=== PATIENT | female | born 1990 | race Caucasian/White ===

== ENCOUNTER 2020-08-04 15:04 | Emergency (ER) | payer OTHER, SELFPAY ==
[2020-08-04 15:30] VITALS: BP 130/73; PULSE 75; RESP 75; TEMP 36.4; O2SAT 98
--- NOTE | 2020-08-04 15:43 | ED.FEMALEGU ---
HPI - Female Genitourinary General Source: patient Mode of arrival: ambulatory Limitations: no limitations History of Present Illness HPI Narrative: Patient comes in with complaints of rectal pain when trying to have a bowel movement or when trying to urinate. Pain is sharp, moderately severe, and ongoing for the past few days. She says it is severe enough she felt she must come in for some sort of relief. She previously has had difficulty with hemorrhoids. Nothing has helped decrease the pain at home, and she has tried multiple creams. A sitz bath helped some. MD elicited complaint: dysuria and other (rectal pain ) Pertinent past history: other (hemorroid pain) Onset (ago): day(s) Location of symptoms: other (rectum) Severity: severe Quality of pain: sharp Consistency: constant Vaginal discharge: none Vaginal bleeding: none Urinary symptoms: Dysuria (difficulty with voiding as urination aggravates hemorroid) Exacerbating factors: urination, movement and other (bowel movement) Relieving factors: other (sitz bath) Patient : Yes (heart tones noted by RN within normal range) Related Data Home Medications Medication Instructions Recorded Confirmed docusate sodium [Colace] 50 mg PO DAILY 08/04/20 08/04/20 lansoprazole [Prevacid] 30 mg PO DAILY 08/04/20 08/04/20 prenat.vits,kianna,nar-vzdt-otzil 1 tablet PO DAILY 08/04/20 08/04/20 [ Vitamin] Allergies Allergy/AdvReac Type Severity Reaction Status Date / Time erythromycin base Allergy Unknown Verified 08/04/20 15:36 Review of Systems Constitutional: Constitutional: Reports no additional constitutional complaints Eyes: Eyes: Reports no additional eye complaints ENT: Reports system reviewed and no additional complaints, except as documented Cardiovascular: Cardiovascular: Reports no additional cardiovascular complaints Respiratory: Respiratory: Reports no additional respiratory complaints Gastrointestinal: Gastrointestinal: Reports no additional gastrointestinal complaints Genitourinary: Genitourinary: Reports no additional female genitourinary complaints Musculoskeletal: Musculoskeletal: Reports no additional musculoskeletal complaints Integumentary/Breasts: Skin/Breast: Reports system reviewed and no additional complaints, except as docu Neurologic: Reports system reviewed and no additional complaints, except as documented Psychiatric: Psychiatric: Reports no additional psychiatric complaints Endocrine: Endocrine: Reports no additional endocrine complaints Hematologic/Lymphatic: Hematologic/Lymphatic: Reports no additional hematologic/lymphatic complaints Allergic/Immunologic: Allergic/Immunologic: Reports no additional allergic/immunologic complaints [facility] Past Medical History Medical History External hemorrhoids Surgical History Surgical History History of appendectomy History of cholecystectomy Family History Family History Mother No problems noted. Mother No significant family history Social History Social History (Updated 08/04/20 @ 21:17 by Willian Murray MD) Smoking packs per day: 0.4 Smoking cigarettes per day: 8.0 Smoking status: Current every day smoker Tobacco type: cigarettes Additional smoking assessment comments: less than 1/2 PPD Alcohol intake: never Substance use: never Exam Const: General: alert Orientation/consciousness: patient oriented x3 Other: Appears uncomfortable and quite upset HENMT: Head: normal to inspection Ears: external ears normal and TM's normal bilaterally General nose exam: Normal external nose present Mouth: Yes Normal oral and palatal mucosa present Throat: posterior oropharynx normal Eyes: Conjunctivae: conjunctivae normal Neck: Neck: normal visual inspection and no lymphadenopathy Chest: Chest palpation
[2020-08-04] MEDS: LIDOCAINE HCL 2% JELLY 5 ML TUBE 1 APPLIC (16:00)
[2020-08-04 16:07] LABS: Add Urine Microscopic? YES; Appearance Urine Clear (Clear); Bilirubin Urine Negative (Negative); Blood Urine Negative (Negative); Color Urine Yellow (Yellow); Glucose Urine UA Negative (Negative); Ketones Urine 3+ (Negative); Leukocyte Esterase Ur Negative (Negative); Nitrate Urine Negative (Negative); Protein Urine Negative (Negative); Specific Grav Ur <= 1.005 (1.010-1.020); Urobilinogen Urine 0.2 mg/dL (0.2-1.0); pH Urine 5.5 (5.0-8.0)
[2020-08-04 16:11] LABS: RBC Urine None seen /hpf (0-2); Squamous Epithelial Cell Urine Rare /hpf (Few); WBC Urine None seen /hpf (0-3)
[2020-08-04 16:12] LABS: Bacteria Urine None seen /hpf
== END 2020-08-04 16:45 | disposition home or self-care (01) ==
PROVIDERS: Emergency Provider Emergency Medicine
DX: K64.9 Unspecified hemorrhoids (principal); K64.4 Residual hemorrhoidal skin tags
CPT/HCPCS: 81001; 99282; 99283